=== PATIENT | female | born 1980 | race Caucasian/White ===

== ENCOUNTER 2017-07-25 20:10 | Emergency (ER) | payer MEDICAID ==
[~2017-07-25] VITALS: Ht 160 cm; Wt 54.0 kg
[2017-07-25 20:17] VITALS: BP 113/59
[2017-07-25] MEDS ORDERED: LIDOcaine 1% 30ml preserv. free vial IJ ONE (21:10)
[2017-07-25] MEDS ORDERED: acetaminophen 325mg tablet PO ONE (21:10)
== END 2017-07-25 23:16 | disposition home or self-care (01) ==
LOC: ER 20:10
DX: S61.411A Laceration without foreign body of right hand, initial encounter (principal); W21.07XA Struck by softball, initial encounter; Y93.89 Activity, other specified; Y92.89 Other specified places as the place of occurrence of the external cause; Y99.8 Other external cause status
CPT/HCPCS: 12002; 99283; A6449; J3490

== ENCOUNTER 2018-07-27 08:22 | Emergency (ER) | payer MEDICAID ==
[~2018-07-27] VITALS: Ht 170.2 cm; Wt 61.4 kg
[2018-07-27 08:27] VITALS: BP 125/75
[2018-07-27] MEDS ORDERED: triamcinolone acetonide 40mg/ml inj IM ONE (08:30)
[2018-07-27] MEDS ORDERED: PRED10TA PO (08:31)
--- NOTE | 2018-07-27 08:32 | NUR ---
PA SAW PT IN TRIAGE
== END 2018-07-27 09:34 | disposition home or self-care (01) ==
LOC: ER 08:23
DX: L25.8 Unspecified contact dermatitis due to other agents (principal); F12.90 Cannabis use, unspecified, uncomplicated; Z98.890 Other specified postprocedural states; Z79.899 Other long term (current) drug therapy
CPT/HCPCS: 96372; 99283; J3301